=== PATIENT | female | born 1970 | race Caucasian/White ===

== ENCOUNTER 2019-01-14 12:27 | Emergency (ER) | payer OTHER ==
[~2019-01-14] VITALS: Ht 167.6 cm; Wt 122.7 kg
[2019-01-14 12:49] VITALS: Ht 167.6 cm; Wt 122.7 kg
[2019-01-14 17:37] LABS: APPEARANCE CLEAR (CLEAR); BILIRUBIN NEGATIVE (NEGATIVE); COLOR YELLOW (YELLOW); GLUCOSE 50 mg/dL (NEGATIVE); KETONE NEGATIVE (NEGATIVE); NITRITE NEGATIVE (NEGATIVE); PROTEIN NEGATIVE (NEGATIVE); UROBILINOGEN NORMAL (NORMAL)
[2019-01-14] MEDS ORDERED: VOLTAREN75 MG PO (18:10)
[2019-01-14] MEDS ORDERED: ROBAXIN500 MG PO (18:10)
[2019-01-14 18:55] VITALS: BP 131/66
== END 2019-01-14 18:55 | disposition home or self-care (01) ==
LOC: D.ER 12:27
PROVIDERS: Emergency Medicine
DX: M54.16 Radiculopathy, lumbar region (principal)

== ENCOUNTER 2020-01-04 06:13 | Day surgery (SDC) | payer OTHER ==
[~2020-01-04] VITALS: Ht 167.6 cm; Wt 121.8 kg
[~2020-01-04 06:13] MED LIST: ROBAXIN500 MG PO; VOLTAREN75 MG PO
[2020-01-04 06:45] LABS: HEMATOCRIT 36.3 % (36.0-48.0); MCH 23.6 pg (26.0-34.0); MCHC 30.3 g/dL (31.0-37.0); MCV 77.7 fL (80.0-100.0); MEAN PLATELET VOLUME 9.3 fL (7.4-10.4); RBC 4.67 10x6/uL (4.00-5.40); RDW 18.2 % (11.5-14.5); WBC 11.2 10x3/uL (4.8-10.8)
[2020-01-04] MEDS ORDERED: GLUCOPHAGE500 MG PO (07:12)
[2020-01-04] MEDS ORDERED: GABAPENTIN100 MG PO (07:13)
[2020-01-04] MEDS ORDERED: FERROUS SULFAT325 MG (07:13)
[2020-01-04 07:30] VITALS: Ht 167.6 cm; Wt 121.8 kg
[2020-01-04 07:34] LABS: CALC OSMOLALITY 277 mosm/kg (275-300); CALCIUM 8.2 mg/dL (8.5-10.1); CARBON DIOXIDE 25.2 mmol/L (21.0-32.0); CHLORIDE - SERUM 105 mmol/L (98-107); CREATININE - SERUM 0.8 mg/dL (0.6-1.3); GLUCOSE 152 mg/dL (74-106); POTASSIUM - SERUM 4.4 mmol/L (3.5-5.1); SODIUM 138 mmol/L (136-145); UREA NITROGEN 11 mg/dL (7-18); eGFR NON AFRICAN AMERICAN 80 mL/min (90-120)
[2020-01-04 07:39] LABS: HCG URINE NEGATIVE (NEGATIVE)
--- NOTE | 2020-01-04 09:33 | NUR ---
0851 IV DC'D. CATHETER TIP INTACT. NO BLEEDING OR SWELLING AT SITE. BANDAID APPLIED.
--- NOTE | 2020-01-04 16:41 | OP ---
PATIENT NAME: TOMER CURRIE MEDICAL RECORD: [id number] :66 LOCATION:[facility] ADMISSION DATE: SURGEON: JUAN JOSÉ PALOMO DO DATE OF OPERATION: 01/04/2020 PROCEDURE: EGD with biopsies. INDICATIONS FOR PROCEDURE: Nausea and iron deficiency anemia. SCOPE: Olympus video gastroscope. MEDICATIONS: Propofol 250 mg IV per anesthesia. ESTIMATED BLOOD LOSS: Minimal. COMPLICATIONS: None. FINDINGS: Informed consent given. The patient was made comfortable with the above medication. After reaching an adequate level of sedation by slow IV push, the patient was placed on her left side. The endoscope was advanced under direct visualization through the mouth to the jejunum. The esophagus appeared normal down to the GE junction but there appeared to be some charles present. At the GE junction, there were minor changes consistent with LA class A reflux-induced esophagitis. 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 The endoscope was able to be retroflexed in the gastric pouch to view the cardia, where a small sliding hiatal hernia was present. The mucosa of the gastric pouch appeared normal. Random cold forceps biopsies were taken to submit for histopathology and to rule out the presence of H. pylori. The gastrojejunal anastomosis appeared normal without marginal ulcerations or other abnormalities. Some staple and suture material was visualized. The endoscope was advanced beyond the gastric pouch where a blind limb and the jejunal limb was visualized. The mucosa of both sites appeared normal. Cold forceps, biopsies were taken from the jejunum to submit for histopathology. The endoscope was withdrawn from the patient. The patient tolerated the procedure well and there were no complications. IMPRESSION: 1. LA class A reflux-induced esophagitis. 2. Small sliding hiatal hernia. 3. Prior surgery, which was a Leonardo-en-Y gastric bypass which appears normal. 4. Candidal esophagitis PLAN AND RECOMMENDATIONS: 1. Discharge home when recovery parameters are met. 2. Follow up biopsy specimen results. 3. GERD diet and reflux precautions. 4. Continue current medications. 5. Recommend [id number] Pepcid as needed when reflux occurs if present. 6. We will await for colonoscopy to be completed before recommending any medications, which is mainly her diarrhea. We would consider an empiric trial of Xifaxan regarding a possible diagnosis of small intestinal bacterial overgrowth, which is not uncommon with a gastric bypass patient. 7. Nystatin swish and swallow TID x 10 days. OPERATIVE REPORT [id number] TOMER CURRIE TRANSINT:[id number] Voice Confirmation ID: [id number] DOCUMENT ID: [id number] JUAN JOSÉ PALOMO DO at 1641 CC: [id number] DICTATION DATE: 01/04/20 0809 [employer]ING CONTRACTOR: 01/04/20 1305 [facility] 01/04/20 [id number] [place] [id number]
== END 2020-01-04 09:00 | disposition home or self-care (01) ==
LOC: D.OPS 06:13
PROVIDERS: Anesthesiology; ATTEND Internal Medicine Gastroenterology
DX: R11.0 Nausea (principal); D53.9 Nutritional anemia, unspecified; B37.81 Candidal esophagitis; K44.9 Diaphragmatic hernia without obstruction or gangrene

== ENCOUNTER 2021-04-24 08:56 | Emergency (ER) | payer OTHER ==
[~2021-04-24] VITALS: Ht 165.1 cm; Wt 131.8 kg
[~2021-04-24 08:56] MED LIST changes: +FERROUS SULFAT325 MG; +GABAPENTIN100 MG PO; +GLUCOPHAGE500 MG PO
[2021-04-24 09:04] VITALS: BP 150/79; Ht 165.1 cm; Wt 131.8 kg
[2021-04-24] MEDS ORDERED: BACTRIM DS TAB1 EAC1 PO (09:05)
[2021-04-24] MEDS ORDERED: CEPHALEXIN500 M1 PO ×2 (10:42→16:19)
== END 2021-04-24 11:28 | disposition home or self-care (01) ==
LOC: D.ER 08:56
DX: L03.114 Cellulitis of left upper limb (principal); E11.9 Type 2 diabetes mellitus without complications; Z79.84 Long term (current) use of oral hypoglycemic drugs